=== PATIENT | female | born 1960 | race Caucasian/White ===

== ENCOUNTER 2019-01-27 09:30 | Day surgery (SDC) | payer MEDICAID ==
[~2019-01-27] VITALS: Ht 167.6 cm; Wt 139.1 kg
[~2019-01-27 09:30] MED LIST: ATEN25TA PO; ATOR40TA28 PO; FAMO20 PO; HYDR25TA PO; LISI-662 PO; SODIUM CHLORIDE 0.9% 1,000 ML IV ONE
[2019-01-27] MEDS: SODIUM CHLORIDE 0.9% 1,000 ML IV ONE (10:06)
[2019-01-27] MEDS ORDERED: LIDOCAINE/PF 2% 5 ML VIAL INJ ONE (12:00)
[2019-01-27] MEDS ORDERED: PROPOFOL 1% 20 ML VIAL IVP ONE (12:00)
== END 2019-01-27 11:40 | disposition home or self-care (01) ==
LOC: SURGERY 09:30
PROVIDERS: ATTEND Internal Medicine Gastroenterology
DX: K31.7 Polyp of stomach and duodenum (principal); K29.50 Unspecified chronic gastritis without bleeding; K21.9 Gastro-esophageal reflux disease without esophagitis; E66.01 Morbid (severe) obesity due to excess calories; M19.90 Unspecified osteoarthritis, unspecified site; E78.00 Pure hypercholesterolemia, unspecified; Z79.899 Other long term (current) drug therapy; Z68.43 Body mass index [BMI] 50.0-59.9, adult
CPT/HCPCS: 43239; 88305; 88312; 88313; C1769; J2704; J3490; J7030